=== PATIENT | male | born 1970 | race Two or more races ===

== ENCOUNTER 2017-06-18 23:46 | Emergency (ER) | payer OTHER ==
[~2017-06-18] VITALS: Ht 195.6 cm; Wt 129.3 kg
--- NOTE | 2017-06-18 23:55 | NUR ---
BIBRA 878 C/O LEFT LEG PAIN. PT STATES 2 MONTHS AGO 2X4 WOOD FELL ON LEFT LEG X 2 MONTHS. LLL IS IN A MEDICLA BOOT. PT STATES PAIN 07/07. PT ADMITS TO TAKIGN COCAINE, AMPHETAMINES. PT IS AAOX4. VSS. SKIN WNL. RESP EVEN AND UNLABORED. NO S/S OF ACUTE DISTRESS NOTED. PT COMFORT AND SAFETY MEASURES IN PLACE. AWAITING MD FOR EVAL.
[2017-06-19] MEDS ORDERED: IBUPROFEN 400 MG TABLET ONE (00:04)
--- NOTE | 2017-06-19 00:12 | NUR ---
PT MEDICATED PER MD ORDERS. PT STATES "I AM BIPOLAR AND WANT TO SEE A PSYCHIATRIST." PT STATES "I WANT TO HURT SOME PEOPLE IN MY COMMUNITY WHO HAVE HURT ME." PT +HI, -SI. MADE AWARE.
--- NOTE | 2017-06-19 00:29 | NUR ---
PT GIVEN URINAL. AWAITING FOR URINE SPECIMEN.
[2017-06-19] MEDS ORDERED: IBUPROFEN 200 MG TABLET PO PRN (00:30)
[2017-06-19 00:31] LABS: BASOPHILS # (AUTO) 0.1 /CMM (0.0-0.2); BASOPHILS % (AUTO) 0.4 % (0.0-2.0); EOSINOPHILS % (AUTO) 0.2 % (0.0-6.0); HEMATOCRIT 41 % (39-51); LYMPHOCYTES # (AUTO) 1.6 /CMM (0.8-4.8); LYMPHOCYTES % (AUTO) 11.7 % (20.0-44.0); MEAN CORPUSCULAR HEMOGLOBIN 30 PG (26.0-33.0); MEAN CORPUSCULAR HGB CONC 34 g/dl (31.0-36.0); MEAN CORPUSCULAR VOLUME 88 fL (80-96); MONOCYTES # (AUTO) 1.2 /CMM (0.1-1.30); MONOCYTES % (AUTO) 8.9 % (2.0-12.0); NEUTROPHILS # (AUTO) 10.6 /CMM (1.8-8.9); NEUTROPHILS % (AUTO) 78.8 % (43.0-81.0); PLATELET COUNT (AUTO) 376 /CMM (150-450); RDW COEFFICIENT OF VARIATION 14.6 (11.5-15.0); RED BLOOD CELL COUNT(AUTO) 4.65 MIL/uL (4.5-6.0); WHITE BLOOD COUNT (AUTO) 13.5 K/uL (4.3-11.0)
[2017-06-19 00:46] LABS: CALCIUM, SERUM 9.7 mg/dL (8.5-10.1); CARBON DIOXIDE 25 mmol/L (21-32); CHLORIDE 97 mmol/L (98-107); CREATININE 1.1 mg/dL (0.6-1.3); GLUCOSE 136 mg/dL (74-106); POTASSIUM 3.8 mmol/L (3.5-5.1); SODIUM SERUM 134 mmol/L (136-145); UREA NITROGEN, BLOOD 10 mg/dL (7-18)
[2017-06-19 00:51] LABS: ACETAMINOPHEN 0 ug/ml (10-30); ALANINE AMINOTRANSFERASE 41 U/L (12-78); ALBUMIN 4.1 g/dL (3.4-5.0); ALCOHOL, BLOOD < 3 mg/dL (0-0); ALKALINE PHOSPHATASE 155 U/L (46-116); ASPARTATE AMINOTRANSFERASE 28 U/L (15-37); BILIRUBIN,DIRECT 0.1 mg/dL (0.0-0.2); BILIRUBIN,TOTAL 0.6 mg/dL (0.2-1.0); SALICYLATE 2.6 mg/dL (2.8-20.0); TOTAL PROTEIN, SERUM 8.2 g/dL (6.4-8.2)
--- NOTE | 2017-06-19 01:09 | NUR ---
URINE SAMPLE COLLECTED. CALLED LAB FOR SALESPERSON FLOWERS
[2017-06-19 01:31] LABS: APPEARANCE,URINE CLEAR (CLEAR); BILIRUBIN,URINE NEGATIVE (NEGATIVE); BLOOD, URINE NEGATIVE Ery/uL (NEGATIVE); COLOR,URINE YELLOW (YELLOW); KETONES,URINE NEGATIVE (NEGATIVE); LEUKOCYTE ESTERASE ,URINE NEGATIVE (NEGATIVE); NITRITE, URINE NEGATIVE (NEGATIVE); PROTEIN,URINE NEGATIVE (NEGATIVE); UGLUCOSE NEGATIVE (NEGATIVE); UROBILINOGEN,URINE 0.2 EU/dL (0.2)
--- NOTE | 2017-06-19 02:03 | NUR ---
Patient is resting comfortably in bed with eyes closed. Easily aroused. VSS
--- NOTE | 2017-06-19 02:45 | NUR ---
PT RESTING COMFORTABLY IN BED WITH EYES OPEN. VSS. NO S/S OF PT DISCOMFORT NOTED IN PT.
--- NOTE | 2017-06-19 02:45 | NUR ---
HALLE HURTADO BEDSIDE FOR EVAL.
[2017-06-19 03:04] VITALS: BP 151/101
== END 2017-06-19 03:07 | disposition home or self-care (01) ==
LOC: ER 23:52
DX: F15.10 Other stimulant abuse, uncomplicated (principal); F14.10 Cocaine abuse, uncomplicated; F19.10 Other psychoactive substance abuse, uncomplicated; Z88.8 Allergy status to other drugs, medicaments and biological substances
CPT/HCPCS: 36415; 80048-TC; 80076-TC; 80305; 81000-TC; 85025-TC; A4606; G0480; Z7610

== ENCOUNTER 2017-07-23 22:07 | Emergency (ER) | payer OTHER ==
[~2017-07-23] VITALS: Ht 177.8 cm; Wt 104.3 kg
--- NOTE | 2017-07-23 22:07 | NUR ---
"I AM HEARING VOICES TO HURT MYSE BUT DONT WANT HURT MYSELF OR ANYONE ELSE" VSS NAD A/OX4 ABLE TO MAKE NEEDS KNOWN. WILL CONTINUE TO MONITOR FOR ANY CHANGES DURING THE SHIFT.
[2017-07-23 22:44] LABS: BASOPHILS # (AUTO) 0.1 /CMM (0.0-0.2); BASOPHILS % (AUTO) 0.6 % (0.0-2.0); EOSINOPHILS % (AUTO) 1.3 % (0.0-6.0); HEMATOCRIT 41 % (39-51); HEMOGLOBIN 13.6 g/dL (13.5-17.5); LYMPHOCYTES # (AUTO) 1.9 /CMM (0.8-4.8); MEAN CORPUSCULAR HGB CONC 34 g/dl (31.0-36.0); MEAN CORPUSCULAR VOLUME 86 fL (80-96); MONOCYTES # (AUTO) 0.5 /CMM (0.1-1.30); MONOCYTES % (AUTO) 5.3 % (2.0-12.0); NEUTROPHILS % (AUTO) 72.8 % (43.0-81.0); PLATELET COUNT (AUTO) 399 /CMM (150-450); WHITE BLOOD COUNT (AUTO) 9.6 K/uL (4.3-11.0)
[2017-07-23 23:06] LABS: CALCIUM, SERUM 9.6 mg/dL (8.5-10.1); CARBON DIOXIDE 25 mmol/L (21-32); CREATININE 1.2 mg/dL (0.6-1.3); GLUCOSE 130 mg/dL (74-106); UREA NITROGEN, BLOOD 15 mg/dL (7-18)
[2017-07-23 23:19] LABS: ALANINE AMINOTRANSFERASE 52 U/L (12-78); ALBUMIN 3.8 g/dL (3.4-5.0); ALCOHOL, BLOOD < 3 mg/dL (0-0); ALKALINE PHOSPHATASE 152 U/L (46-116); ASPARTATE AMINOTRANSFERASE 25 U/L (15-37); BILIRUBIN,DIRECT 0.1 mg/dL (0.0-0.2); BILIRUBIN,TOTAL 0.3 mg/dL (0.2-1.0); CHLORIDE 105 mmol/L (98-107); POTASSIUM 3.5 mmol/L (3.5-5.1); SALICYLATE 2.5 mg/dL (2.8-20.0); SODIUM SERUM 141 mmol/L (136-145); TOTAL PROTEIN, SERUM 7.8 g/dL (6.4-8.2)
[2017-07-23 23:20] LABS: ACETAMINOPHEN 0 ug/ml (10-30)
--- NOTE | 2017-07-24 01:15 | NUR ---
ART AT BEDSIDE FOR PSYCH EVAL
[2017-07-24 01:52] VITALS: BP 128/71
[2017-07-24 01:53] LABS: APPEARANCE,URINE CLEAR (CLEAR); BILIRUBIN,URINE NEGATIVE (NEGATIVE); BLOOD, URINE NEGATIVE Ery/uL (NEGATIVE); COLOR,URINE YELLOW (YELLOW); KETONES,URINE NEGATIVE (NEGATIVE); LEUKOCYTE ESTERASE ,URINE NEGATIVE (NEGATIVE); NITRITE, URINE NEGATIVE (NEGATIVE); PROTEIN,URINE NEGATIVE (NEGATIVE); UGLUCOSE NEGATIVE (NEGATIVE); UROBILINOGEN,URINE 0.2 EU/dL (0.2)
--- NOTE | 2017-07-24 03:00 | NUR ---
REPORT GIVEN TO NORBERTO
== END 2017-07-24 03:24 ==
LOC: ER 22:08
DX: R45.851 Suicidal ideations (principal); R44.0 Auditory hallucinations; F32.9 Major depressive disorder, single episode, unspecified; F20.9 Schizophrenia, unspecified; Z88.8 Allergy status to other drugs, medicaments and biological substances
CPT/HCPCS: 36415; 80048-TC; 80076-TC; 80305; 81000-TC; 85025-TC; A4606; G0480; Z7610

== ENCOUNTER 2017-09-27 01:47 | Emergency (ER) | payer OTHER ==
[~2017-09-27] VITALS: Ht 182.9 cm; Wt 133.4 kg
--- NOTE | 2017-09-27 02:02 | NUR ---
BB RA, PT AMBULATORY TO ER BED 11, PT C/O "IM HAVING A MANIC EPISODE. HX OF BIPOLAR" "TOOK SEROQUEL AT 1130 THAT HELPED" PT AOX3 RR EVEN AND UNLABORED. NO SOB NOTED. NO NVD AT THIS TIME. PT APPEARS ANXIOUS. PT PLACED ON MONITOR WAITING FOR MD VALENZUELA.
--- NOTE | 2017-09-27 02:03 | NUR ---
URINE COLLECTED. CALLED LAB FOR GROUND SERVICES INSTRUCTOR.
--- NOTE | 2017-09-27 02:04 | NUR ---
DR. DE SANTIAGO AT BEDSIDE FOR EVAL.
--- NOTE | 2017-09-27 02:06 | NUR ---
LAB AT BEDSIDE FOR BLOOD DRAW
[2017-09-27] MEDS ORDERED: LORAZEPAM 1 MG TABLET ONE (02:09)
--- NOTE | 2017-09-27 02:15 | NUR ---
PT REFUSED BLOOD DRAW/ PO ATIVAN, RISK AND BENEFITS EXPLAINED X3. PT STRONGLY REFUSED. Patient does not wish to proceed with medical care recommended by Dr. Jose. Patient given information related to possible complications, up to and including , which could occur as a result of leaving the hospital at this time. Patient verbalizes understanding of risks involved due to leaving against medical advice. Patient has signed AMA form.
[2017-09-27 02:17] VITALS: BP 138/69
[2017-09-27] MEDS ORDERED: LORAZEPAM 1 MG TABLET PO ONE (02:30)
[2017-09-27 02:33] LABS: BASOPHILS % (AUTO) 0.4 % (0.0-2.0); HEMATOCRIT 41 % (39-51); HEMOGLOBIN 13.5 g/dL (13.5-17.5); LYMPHOCYTES # (AUTO) 1.8 /CMM (0.8-4.8); LYMPHOCYTES % (AUTO) 21.3 % (20.0-44.0); MEAN CORPUSCULAR HEMOGLOBIN 30 PG (26.0-33.0); MEAN CORPUSCULAR HGB CONC 33 g/dl (31.0-36.0); MEAN CORPUSCULAR VOLUME 90 fL (80-96); MONOCYTES # (AUTO) 0.5 /CMM (0.1-1.30); MONOCYTES % (AUTO) 6.3 % (2.0-12.0); PLATELET COUNT (AUTO) 282 /CMM (150-450); RDW COEFFICIENT OF VARIATION 14.9 (11.5-15.0); RED BLOOD CELL COUNT(AUTO) 4.55 MIL/uL (4.5-6.0); WHITE BLOOD COUNT (AUTO) 8.5 K/uL (4.3-11.0)
[2017-09-27 02:42] LABS: CALCIUM, SERUM 9.2 mg/dL (8.5-10.1); CARBON DIOXIDE 20 mmol/L (21-32); CHLORIDE 105 mmol/L (98-107); CREATININE 1.2 mg/dL (0.6-1.3); GLUCOSE 128 mg/dL (74-106); POTASSIUM 3.7 mmol/L (3.5-5.1); SODIUM SERUM 141 mmol/L (136-145); UREA NITROGEN, BLOOD 15 mg/dL (7-18)
[2017-09-27 02:49] LABS: ALANINE AMINOTRANSFERASE 30 U/L (12-78); ALBUMIN 3.8 g/dL (3.4-5.0); ALCOHOL, BLOOD < 3 mg/dL (0-0); ALKALINE PHOSPHATASE 121 U/L (46-116); ASPARTATE AMINOTRANSFERASE 18 U/L (15-37); BILIRUBIN,DIRECT 0.1 mg/dL (0.0-0.2); BILIRUBIN,TOTAL 0.5 mg/dL (0.2-1.0); SALICYLATE 3.6 mg/dL (2.8-20.0); TOTAL PROTEIN, SERUM 7.6 g/dL (6.4-8.2)
[2017-09-27 02:54] LABS: ACETAMINOPHEN 0 ug/ml (10-30)
== END 2017-09-27 02:18 | disposition left against medical advice (07) ==
LOC: ER 01:50
DX: F41.9 Anxiety disorder, unspecified (principal); F32.9 Major depressive disorder, single episode, unspecified; F20.9 Schizophrenia, unspecified; Z88.8 Allergy status to other drugs, medicaments and biological substances
CPT/HCPCS: 36415; 80048; 80076; 80305; 80329; 85025; 99284; A4606; G0480 ×2; Z7610

== ENCOUNTER 2017-09-28 10:51 | Emergency (ER) | payer OTHER ==
[~2017-09-28] VITALS: Ht 193 cm; Wt 133.4 kg
[2017-09-28 10:54] VITALS: BP 141/116
[2017-09-28] MEDS ORDERED: GABAPENTIN 100 MG CAPSULE ONE (11:05)
[2017-09-28] MEDS ORDERED: GABAPENTIN 100 MG CAPSULE PO ONE (11:30)
== END 2017-09-28 11:12 | disposition home or self-care (01) ==
LOC: ER 10:52
DX: G62.9 Polyneuropathy, unspecified (principal); F32.9 Major depressive disorder, single episode, unspecified; F20.9 Schizophrenia, unspecified; Z88.8 Allergy status to other drugs, medicaments and biological substances
CPT/HCPCS: A4606; Z7610

== ENCOUNTER 2017-10-04 20:15 | Emergency (ER) | payer OTHER ==
[~2017-10-04] VITALS: Ht 177.8 cm; Wt 90.7 kg
--- NOTE | 2017-10-04 20:21 | NUR ---
PT TO ER BED 6. BIB RA FROM HOME FOR ETOH. PT PLACED ON PHARMACEUTICAL PROCESS ENGINEER. VSS/RESP EVEN UNLABORED/NAD NOTED/SKIN WARM AND DRY/AFEBRILE/DENIES N-V-D/AOX4. AWAITNG MD VALENZUELA.
[2017-10-04] MEDS ORDERED: CHLORDIAZEPOXIDE HCL 25 MG CAPSULE PO ONE (20:30)
[2017-10-04] MEDS ORDERED: CHLORDIAZEPOXIDE HCL 25 MG CAPSULE ONE (20:42)
--- NOTE | 2017-10-04 20:45 | NUR ---
PT REFUSED MED, MADE AWARE.
--- NOTE | 2017-10-04 21:25 | NUR ---
PT TO CT VIA WC.
--- NOTE | 2017-10-04 21:36 | NUR ---
PT BACK FROM CT.
[2017-10-04 22:33] LABS: AMYLASE 191 U/L (25-115); LIPASE 190 U/L (73-393)
[2017-10-05 00:51] LABS: BILIRUBIN,DIRECT 0.1 mg/dL (0.0-0.2); BILIRUBIN,TOTAL 0.2 mg/dL (0.2-1.0)
--- NOTE | 2017-10-05 01:20 | NUR ---
PT RESTING QUIETLY, AROUSES EASILY TO VOICE. VSS/RESP EVEN UNLABORED. RN WILL CONTINUE MONITORING PATIENT, PROVIDING SAFETY/COMFORT MEASURES.
--- NOTE | 2017-10-05 04:26 | NUR ---
Terrell silverman in ED - 10/05/17 at 0430 by DION PT STATES HE WANTS A PSYCH EVAL, STATES WANTS TO HURT HIMSELF BY "RUNNING INTO TRAFFIC". -HI.
--- NOTE | 2017-10-05 04:30 | NUR ---
PT STATES HE WANTS A PSYCH EVAL, STATES WANTS TO HURT HIMSELF BY "RUNNING INTO TRAFFIC". -HI.
--- NOTE | 2017-10-05 05:10 | NUR ---
URINE SPECIMEN OBTAINED AND SENT TO THE LAB.
--- NOTE | 2017-10-05 05:12 | NUR ---
PATIENT REFUSES FOR LAB TO DRAW.
--- NOTE | 2017-10-05 05:13 | NUR ---
CALLED LOWELL LOVETT, FOR PT EVAL. RACHELL IS COMING IN.
[2017-10-05] MEDS ORDERED: GABAPENTIN 300 MG CAPSULE ONE ×2 (05:19→11:59)
[2017-10-05] MEDS ORDERED: GABAPENTIN 100 MG CAPSULE PO ONE ×2 (05:30→12:00)
--- NOTE | 2017-10-05 05:54 | NUR ---
RACHELL AT BEDSIDE FOR EVAL.
[2017-10-05 06:07] LABS: BASOPHILS # (AUTO) 0.3 /CMM (0.0-0.2); BASOPHILS % (AUTO) 4.2 % (0.0-2.0); EOSINOPHILS % (AUTO) 0.5 % (0.0-6.0); HEMATOCRIT 42 % (39-51); HEMOGLOBIN 13.9 g/dL (13.5-17.5); LYMPHOCYTES # (AUTO) 1.1 /CMM (0.8-4.8); LYMPHOCYTES % (AUTO) 13.4 % (20.0-44.0); MEAN CORPUSCULAR HEMOGLOBIN 30 PG (26.0-33.0); MEAN CORPUSCULAR HGB CONC 33 g/dl (31.0-36.0); MEAN CORPUSCULAR VOLUME 92 fL (80-96); MONOCYTES # (AUTO) 0.6 /CMM (0.1-1.30); MONOCYTES % (AUTO) 7.1 % (2.0-12.0); NEUTROPHILS # (AUTO) 6.2 /CMM (1.8-8.9); NEUTROPHILS % (AUTO) 74.8 % (43.0-81.0); PLATELET COUNT (AUTO) 251 /CMM (150-450); RDW COEFFICIENT OF VARIATION 15.3 (11.5-15.0); RED BLOOD CELL COUNT(AUTO) 4.56 MIL/uL (4.5-6.0); WHITE BLOOD COUNT (AUTO) 8.3 K/uL (4.3-11.0)
[2017-10-05 06:12] LABS: CALCIUM, SERUM 8.8 mg/dL (8.5-10.1); POTASSIUM 4.2 mmol/L (3.5-5.1)
--- NOTE | 2017-10-05 07:03 | NUR ---
ENDORSED TO DIDI RENTERIA FOR RENA.
--- NOTE | 2017-10-05 07:03 | NUR ---
RECEIVED REPORT FOR RENA.
--- NOTE | 2017-10-05 07:03 | NUR ---
SPOKE TO MICHAEL AT [facility]. FAXED A COPY OF LABS TO MICHAEL. PT TO BE ACCEPTED AT [facility] AT APPOX 0830. MICHAEL TO CALL BACK
--- NOTE | 2017-10-05 10:13 | NUR ---
CALLED [facility], SPOKE TO MICHAEL CASTRO, SHE WILL CALL ME BACK IN 15 MINUTES.
--- NOTE | 2017-10-05 10:51 | NUR ---
MICHAEL FROM [facility]: DR. BELLE ACCEPTING REPORT [phone] EXT [phone]
--- NOTE | 2017-10-05 11:03 | NUR ---
REPORT GIVEN TO YULIANA SHAH [facility] JULIETA KAYLA FOR TRANSFER.
--- NOTE | 2017-10-05 11:09 | NUR ---
CALLED [facility] FOR TRANSPORT TO [facility], ETA 20 MIN, TRIP [id number]
[2017-10-05 12:01] VITALS: BP 157/72
--- NOTE | 2017-10-05 12:03 | NUR ---
REPORT GIVEN TO EMT AT [facility]. PATIENT TRANSFERRED TO [facility] VIA AMBULANCE IN STABLE CONDITION.
== END 2017-10-05 12:03 ==
LOC: ER 20:16
DX: F10.129 Alcohol abuse with intoxication, unspecified (principal); R79.89 Other specified abnormal findings of blood chemistry; Y90.4 Blood alcohol level of 80-99 mg/100 ml; I10 Essential (primary) hypertension; R41.82 Altered mental status, unspecified; J45.909 Unspecified asthma, uncomplicated; F20.9 Schizophrenia, unspecified; F31.9 Bipolar disorder, unspecified; Z88.8 Allergy status to other drugs, medicaments and biological substances
CPT/HCPCS: 36415 ×2; 70450; 71045; 80048; 80305; 82150; 82247; 82248; 82565; 82962; 83605 ×2; 83690; 85025; 99285; A4606; G0480; Z7610

== ENCOUNTER 2018-01-03 11:39 | Emergency (ER) | payer OTHER ==
[~2018-01-03] VITALS: Ht 193 cm; Wt 123.4 kg
--- NOTE | 2018-01-03 11:53 | NUR ---
PT SELF PRESENT TO ER BED 15 C/O AUDITORY HALACINATION, SI PLAN ON RUNNING THROUGH TRAFFIC. STATES OF HIS PSYCH MEDS X 1 WEEK. BILAT KNEE PAIN, L KNEE ABRASION. VSS. AWAITING MD VALENZUELA.
--- NOTE | 2018-01-03 12:09 | NUR ---
DR LINDSAY AT BEDSIDE FOR EVAL.
--- NOTE | 2018-01-03 12:09 | NUR ---
Terrell silverman in [facility] - 01/03/18 at [address] ZAIDI AT [facility] FOR JONNAL.
--- NOTE | 2018-01-03 12:15 | NUR ---
Terrell silverman in [facility] - 01/03/18 at 1519 by [employer] LEAD AT BEDSIDE FOR JONNAL.
--- NOTE | 2018-01-03 12:15 | NUR ---
CLOTH HAND AT BEDSIDE FOR BLOOD DRAW.
[2018-01-03 12:19] LABS: BASOPHILS # (AUTO) 0.1 /CMM (0.0-0.2); BASOPHILS % (AUTO) 0.7 % (0.0-2.0); EOSINOPHILS % (AUTO) 6.3 % (0.0-6.0); HEMATOCRIT 41 % (39-51); HEMOGLOBIN 13.5 g/dL (13.5-17.5); LYMPHOCYTES # (AUTO) 1.7 /CMM (0.8-4.8); LYMPHOCYTES % (AUTO) 20.7 % (20.0-44.0); MEAN CORPUSCULAR HGB CONC 33 g/dl (31.0-36.0); MEAN CORPUSCULAR VOLUME 90 fL (80-96); MONOCYTES # (AUTO) 0.6 /CMM (0.1-1.30); NEUTROPHILS # (AUTO) 5.2 /CMM (1.8-8.9); NEUTROPHILS % (AUTO) 64.3 % (43.0-81.0); PLATELET COUNT (AUTO) 371 /CMM (150-450); RDW COEFFICIENT OF VARIATION 13.6 (11.5-15.0); RED BLOOD CELL COUNT(AUTO) 4.58 MIL/uL (4.5-6.0); WHITE BLOOD COUNT (AUTO) 8.1 K/uL (4.3-11.0)
[2018-01-03 12:37] LABS: ACETAMINOPHEN 18 ug/ml (10-30); ALANINE AMINOTRANSFERASE 34 U/L (12-78); ALBUMIN 3.5 g/dL (3.4-5.0); ALKALINE PHOSPHATASE 103 U/L (46-116); ASPARTATE AMINOTRANSFERASE 22 U/L (15-37); BILIRUBIN,DIRECT 0.1 mg/dL (0.0-0.2); BILIRUBIN,TOTAL 0.4 mg/dL (0.2-1.0); CALCIUM, SERUM 8.5 mg/dL (8.5-10.1); CARBON DIOXIDE 28 mmol/L (21-32); CHLORIDE 107 mmol/L (98-107); CREATININE 1.2 mg/dL (0.6-1.3); GLUCOSE 96 mg/dL (74-106); POTASSIUM 3.8 mmol/L (3.5-5.1); SODIUM SERUM 142 mmol/L (136-145); TOTAL PROTEIN, SERUM 6.7 g/dL (6.4-8.2); UREA NITROGEN, BLOOD 12 mg/dL (7-18)
[2018-01-03 12:38] LABS: ALCOHOL, BLOOD > 3 mg/dL (0-0)
[2018-01-03 13:53] LABS: APPEARANCE,URINE Clear (CLEAR); BILIRUBIN,URINE Negative (NEGATIVE); BLOOD, URINE Negative Ery/uL (NEGATIVE); COLOR,URINE Yellow (YELLOW); KETONES,URINE Negative (NEGATIVE); LEUKOCYTE ESTERASE ,URINE Negative (NEGATIVE); NITRITE, URINE Negative (NEGATIVE); PROTEIN,URINE Negative (NEGATIVE); UGLUCOSE Negative (NEGATIVE)
[2018-01-03 14:12] LABS: BACTERIA,URINE Rare /HPF (None Seen); RBC,URINE 0-2 /HPF (0-2); SQUAMOUS EPITHELIAL CELL,UR Few /HPF (None Seen); WBC,URINE 0-2 /HPF (0-3)
--- NOTE | 2018-01-03 14:32 | NUR ---
RACHELL RN AT BEDSIDE FOR PSYCH EVAL.
--- NOTE | 2018-01-03 19:35 | NUR ---
PATIENT ACCEPTED AT [facility] ACCEPTED BY DR REGAN NUMBER TO GIVE REPORT
--- NOTE | 2018-01-03 19:37 | NUR ---
CALLED [facility] FOR TRANSPORT ETA OF 4823 WAS GIVEN. TRIP#[id number]
--- NOTE | 2018-01-03 19:45 | NUR ---
REPORT GIVEN TO HARRY RN, PT AWAITING TRANSPORT TO [facility].
--- NOTE | 2018-01-03 22:10 | NUR ---
CALLED [facility] FOR UPDATE ON TRANPSORT ETA OF 2219 WAS GIVEN.
[2018-01-03 22:46] VITALS: BP 114/70
--- NOTE | 2018-01-03 22:50 | NUR ---
Patient Tranfers to outside Facility Physician: DR. REGAN Location: [facility]
--- NOTE | 2018-01-03 22:53 | NUR ---
REPORT GIVEN TO SINTIA VITAL FROM [facility]
[2018-01-03] MEDS ORDERED: IBUPROFEN 400 MG TABLET ONE (22:59)
[2018-01-03] MEDS ORDERED: IBUPROFEN 400 MG TABLET PO ONE (23:00)
== END 2018-01-03 22:53 ==
LOC: ER 11:40
DX: R45.851 Suicidal ideations (principal); I10 Essential (primary) hypertension; J45.909 Unspecified asthma, uncomplicated; F20.9 Schizophrenia, unspecified; F31.9 Bipolar disorder, unspecified; Z88.8 Allergy status to other drugs, medicaments and biological substances
CPT/HCPCS: 36415; 80048; 80076; 80305; 80329; 81001; 85025; 99285; A4606; G0480 ×2; Z7610; 81000-TC

== ENCOUNTER 2018-01-14 01:27 | Emergency (ER) | payer OTHER ==
[~2018-01-14] VITALS: Ht 177.8 cm; Wt 104.3 kg
[2018-01-14 02:10] VITALS: BP 128/92
[2018-01-14] MEDS ORDERED: IBUPROFEN 400 MG TABLET PO ONE (02:30)
[2018-01-14] MEDS ORDERED: IBUPROFEN 400 MG TABLET ONE (02:36)
== END 2018-01-14 02:46 | disposition home or self-care (01) ==
LOC: ER 01:31
DX: S93.492A Sprain of other ligament of left ankle, initial encounter (principal); I10 Essential (primary) hypertension; J45.909 Unspecified asthma, uncomplicated; F20.9 Schizophrenia, unspecified; F31.9 Bipolar disorder, unspecified; Z88.8 Allergy status to other drugs, medicaments and biological substances; X50.1XXA Overexertion from prolonged static or awkward postures, initial encounter; Y93.89 Activity, other specified; Y92.89 Other specified places as the place of occurrence of the external cause; Y99.8 Other external cause status
CPT/HCPCS: 73610-TC; 73630-TC; A4606; Z7610